=== PATIENT | female | born 1970 | race Caucasian/White ===

== ENCOUNTER 2017-01-01 08:19 | Emergency (ER) | payer OTHER ==
--- NOTE | 2017-01-01 10:11 | UC ---
Hand/Wrist HPI - HPI Summary HPI Summary: Patient presents with a past medical history of left wrist injury year ago, she sprained her wrist at work. She states yesterday she started to develop pain in the left wrist, that is worse with movement, and improves some at rest. She describes the pain with movement as sharp, and dull pain at rest. She also states that she has been experiencing some - History Of Current Complaint Chief Complaint: UCUpperExtremity Stated Complaint: HAND PAIN NUMBNESS Time Seen by Provider: 01/01/17 09:06 Hx Obtained From: Patient Hx Last Menstrual Period: 10/20 Onset/Duration: Gradual Onset, Lasting Days Severity Initially: Moderate Severity Currently: Moderate Character Of Pain: Dull Aggravating Factor(s): Movement, Lifting, Flexion, Extension Alleviating: Rest Associated Signs And Symptoms: Positive: Numbness/Tingling - Allergies/Home Medications Allergies/Adverse Reactions: Allergies Allergy/AdvReac Type Severity Reaction Status Date / Time Morphine Allergy Severe VOMITING, Verified 07/01/15 15:42 HALLUCINATIONS Sulfa Antibiotics Allergy Severe Anaphylatic Verified 07/01/15 15:42 Shock Home Medications: Home Medications Dextromethorphan-Phenylephrine [Day Time Multi-Symptom Co] 1 cap PO 01/01/17 [ History] PMH/Surg Hx/FS Hx/Imm Hx Previously Healthy: Yes - Surgical History Surgical History: Yes Surgery Procedure, Year, and Place: BREAST REDUCTION - Family History Known Family History: Positive: None - Social History Occupation: Employed Full-time Lives: Alone Alcohol Use: None Substance Use Type: None Smoking Status (MU): Former Smoker Type: Cigarettes Amount Used/How Often: 8 CIG/DAY Length of Time of Smoking/Using Tobacco: 12 YEARS Have You Smoked in the Last Year: Yes When Did the Patient Quit Smoking/Using Tobacco: 05/06/13 - Immunization History Most Recent Tetanus Shot: does not recall Review of Systems Constitutional: Negative Skin: Negative Eyes: Negative ENT: Negative Respiratory: Negative Cardiovascular: Negative Gastrointestinal: Negative Genitourinary: Negative Motor: Other - left wrist pain All Other Systems Reviewed And Are Negative: Yes Physical Exam Triage Information Reviewed: Yes Appearance: Well-Appearing Vital Signs: Initial Vital Signs Temp 98.0 F 01/01/17 08:27 Pulse 81 01/01/17 08:27 Resp 18 01/01/17 08:27 BP 137/79 01/01/17 08:27 Pulse Ox 97 01/01/17 08:27 Vital Signs Reviewed: Yes Eye Exam: Normal ENT Exam: Normal Neck exam: Normal Respiratory Exam: Normal Cardiovascular Exam: Normal Abdominal Exam: Normal Musculoskeletal: Positive: Strength Limited @, ROM Limited @ - tenderness to palpation of left volar aspect of wrist, no erythma, induration noted. Hand/Wrist Course/Dx - Course Course Of Treatment: Patient presents with a past medical history of left wrist sprain, she presents today with nontruamtatic pain with movement consistent with tendonitis or overuse syndrome. she was placed in a cock up splint and given nsaids for pain control. I have taken her out of work for 2 days, and if her symtpoms perisit beyond that she should follow up with pcp. at the time of discharge she was neuro-vascually intact and in agreement with the discharge plan. - Differential Dx/Diagnosis Differential Diagnosis/HQI/PQRI: Tendonitis Provider Diagnoses: tedonitis Discharge - Discharge Plan Condition: Stable Disposition: HOME Prescriptions: Naproxen [Naprosyn 500 mg] 500 mg PO BID PRN #14 tab PRN Reason: tendonitis Patient Education Materials: Tendinitis (ED) Forms: *Work Release Referrals: Nadia Marte MD [Primary Care Provider] -
[2017-01-01 10:51] VITALS: BP 158/91
== END 2017-01-01 10:38 | disposition home or self-care (01) ==
LOC: UCEAST 08:19
DX: M65.842 Other synovitis and tenosynovitis, left hand (principal); Z88.5 Allergy status to narcotic agent; Z88.2 Allergy status to sulfonamides; Z87.891 Personal history of nicotine dependence
CPT/HCPCS: 99213; G0463

== ENCOUNTER 2018-01-21 16:23 | Emergency (ER) | payer SELFPAY ==
[2018-01-21 16:34] VITALS: BP 153/84
--- NOTE | 2018-01-21 17:12 | UC ---
Throat Pain/Nasal Sarwat HPI - HPI Summary HPI Summary: sinus pain and pressure x 3 weeks + dry ,cough, nasal congestion , pnd no fever, no chills , - History of Current Complaint Chief Complaint: UCRespiratory Stated Complaint: COUGH Time Seen by Provider: 01/21/18 17:04 Hx Obtained From: Patient Hx Last Menstrual Period: 11/20 ?: No Onset/Duration: Gradual Onset, Lasting Weeks - 3, Still Present Severity: Moderate Pain Intensity: 7 Cough: Nonproductive Associated Signs & Symptoms: Positive: Sinus Discomfort, Nasal Discharge. Negative: Wheezing, Fever, Vomiting, Rash - Allergies/Home Medications Allergies/Adverse Reactions: Allergies Allergy/AdvReac Type Severity Reaction Status Date / Time Sulfa (Sulfonamide Allergy Severe Anaphylatic Verified 01/21/18 16:35 Antibiotics) Shock morphine Allergy Intermediate vomitting Verified 01/21/18 16:35 haulicinations Home Medications: Home Medications Metformin HCl 500 mg PO TID 01/21/18 [History Confirmed 01/21/18] buPROPion TAB* [Wellbutrin TAB*] 100 mg PO BID 01/21/18 [History Confirmed 01/21] PMH/Surg Hx/FS Hx/Imm Hx Endocrine History: Diabetes Psychological History: Anxiety, Depression - Surgical History Surgical History: Yes Surgery Procedure, Year, and Place: BREAST REDUCTION - Family History Known Family History: Positive: None, Diabetes - Social History Alcohol Use: None Substance Use Type: None Smoking Status (MU): Former Smoker Type: Cigarettes Amount Used/How Often: 8 CIG/DAY Length of Time of Smoking/Using Tobacco: 12 YEARS Have You Smoked in the Last Year: Yes When Did the Patient Quit Smoking/Using Tobacco: 05/06/13 - Immunization History Most Recent Tetanus Shot: does not recall Review of Systems Constitutional: Chills, Fatigue Skin: Negative Eyes: Negative ENT: Sore Throat, Nasal Discharge, Sinus Congestion, Sinus Pain/Tenderness Respiratory: Cough Cardiovascular: Negative Is Patient Immunocompromised?: No All Other Systems Reviewed And Are Negative: Yes Physical Exam Triage Information Reviewed: Yes Appearance: Well-Appearing, No Pain Distress, Well-Nourished Vital Signs: Initial Vital Signs Temp 97.9 F 01/21/18 16:30 Pulse 87 01/21/18 16:30 Resp 18 01/21/18 16:30 BP 153/84 01/21/18 16:30 Pulse Ox 96 01/21/18 16:30 Vital Signs Reviewed: Yes Eyes: Positive: Conjunctiva Clear ENT: Positive: Normal ENT inspection, Hearing grossly normal, Pharyngeal erythema, Nasal congestion, Nasal drainage, TMs normal, Sinus tenderness Neck: Positive: Supple, Nontender, No Lymphadenopathy Respiratory: Positive: Chest non-tender, Lungs clear, Normal breath sounds Cardiovascular: Positive: RRR, No Murmur, Pulses Normal Skin Exam: Normal Throat Pain/Nasal Course/Dx - Differential Dx/Diagnosis Provider Diagnoses: sinusitis Discharge - Sign-Out/Discharge Documenting (check all that apply): Patient Departure All imaging exams completed and their final reports reviewed: No Studies - Discharge Plan Condition: Stable Disposition: HOME Prescriptions: Amoxicillin/Clavulanate TAB* [Augmentin TAB 875*] 875 mg PO BID #20 tab Benzonatate CAP* [Tessalon 100 MG CAP*] 100 mg PO TID PRN #21 cap PRN Reason: Cough Patient Education Materials: Sinusitis (ED) Referrals: Daniela Carpenter MD [Primary Care Provider] - If Needed - Billing Disposition and Condition Condition: STABLE Disposition: Home
== END 2018-01-21 17:15 | disposition home or self-care (01) ==
LOC: UCEAST 16:23
DX: J32.9 Chronic sinusitis, unspecified (principal); E11.9 Type 2 diabetes mellitus without complications; Z79.84 Long term (current) use of oral hypoglycemic drugs; F41.9 Anxiety disorder, unspecified; F32.9 Major depressive disorder, single episode, unspecified; Z88.5 Allergy status to narcotic agent; Z88.2 Allergy status to sulfonamides; Z87.891 Personal history of nicotine dependence
CPT/HCPCS: 99212; G0463

== ENCOUNTER 2018-07-08 14:43 | Emergency (ER) | payer OTHER ==
[2018-07-08 15:08] VITALS: BP 135/84
--- NOTE | 2018-07-08 15:19 | UC ---
Back Pain HPI - HPI Summary HPI Summary: 48 yo female presents with back pain. She tells me that on 07/05/18 she was walking outside and slipped on the ice - did not fall, but did twist her back. Since that time she has had pain in her left lower back and into her buttocks. She has taken ibuprofen and tried resting with little relief. She denies numbness, tingling, saddle anesthesia, or loss of bowel/bladder control. - History of Current Complaint Chief Complaint: UCBackPain Stated Complaint: BACK INJURY Time Seen by Provider: 07/08/18 15:19 Hx Obtained From: Patient Hx Last Menstrual Period: May 09 Onset/Duration: Sudden Onset Timing: Constant Severity Initially: Severe Severity Currently: Severe Pain Intensity: 9 Pain Scale Used: 0-10 Numeric - Allergies/Home Medications Allergies/Adverse Reactions: Allergies Allergy/AdvReac Type Severity Reaction Status Date / Time Sulfa (Sulfonamide Allergy Severe Anaphylatic Verified 07/08/18 15:08 Antibiotics) Shock morphine Allergy Intermediate vomitting Verified 07/08/18 15:08 haulicinations Home Medications: Home Medications Ibuprofen TAB* [Advil TAB*] 600 mg PO Q6H PRN 07/08/18 [History Confirmed ] Sitagliptin Phosphate [Januvia] 25 mg PO DAILY 07/08/18 [History Confirmed 07/08] glipiZIDE [Glipizide ER] 5 mg PO DAILY 07/08/18 [History Confirmed 07/08/18] PMH/Surg Hx/FS Hx/Imm Hx Endocrine History: Diabetes Psychological History: Anxiety, Depression - Surgical History Surgical History: Yes Surgery Procedure, Year, and Place: BREAST REDUCTION - Family History Known Family History: Positive: Diabetes - Social History Occupation: Employed Full-time Lives: With Family Alcohol Use: Rare Substance Use Type: None Smoking Status (MU): Light Every Day Tobacco Smoker Type: Cigarettes Amount Used/How Often: 8 CIG/DAY Length of Time of Smoking/Using Tobacco: 12 YEARS Have You Smoked in the Last Year: Yes When Did the Patient Quit Smoking/Using Tobacco: 05/06/13 - Immunization History Most Recent Tetanus Shot: does not recall Review of Systems All Other Systems Reviewed And Are Negative: Yes Constitutional: Positive: Negative Skin: Positive: Negative Respiratory: Positive: Negative Cardiovascular: Positive: Negative Gastrointestinal: Positive: Negative Genitourinary: Positive: Negative Neurovascular: Positive: Negative Musculoskeletal: Positive: Other: - Low back pain Neurological: Positive: Negative Psychological: Positive: Negative Physical Exam - Summary Physical Exam Summary: GENERAL: NAD. WDWN. No pain distress. SKIN: No rashes, sores, lesions, or open wounds. NECK: Supple. FROM. Nontender. No lymphadenopathy. CHEST: CTAB. No r/r/w. No accessory muscle use. Breathing comfortably and in no distress. CV: RRR. Without m/r/g. Pulses intact. Cap refill <2seconds MSK: TTP over lumbar paraspinal muscles, left > right. Left SI TTP. Pain with flexion and extension of spine. Positive SLR on left for low back pain without radiation. Strength 5/5 B/L LEs including dorsiflexion and plantar flexion. FROM B/L LEs. No edema. NEURO: Alert. Sensations intact B/L LEs L3-S1. Reflexes intact PSYCH: Age appropriate behavior. Triage Information Reviewed: Yes Vital Signs: Initial Vital Signs Temp 97.2 F 07/08/18 15:05 Pulse 84 07/08/18 15:05 Resp 16 07/08/18 15:05 BP 135/84 07/08/18 15:05 Pulse Ox 97 07/08/18 15:05 Laboratory Tests 07/08/18 15:19 POC Ur Test Negative Vital Signs Reviewed: Yes Back Pain Course/Dx - Course Course Of Treatment: XR: IMPRESSION: #. Negative for fracture. #. Mild degenerative spondylosis and moderate facet joint osteoarthritis. She was given toradol IM in the clinic. Suspect muscle strain/spasm. Advised to continue rest and apply heat. Will rx for muscle relaxer and write her a note off work tomorrow. F/u with PCP if symptoms do not improve. - Differential Dx/Diagnosis Provider Diagnosis: Low back strain Discharge - Sign-Out/Discharge Documenting (check all that apply): Patient Departure All imaging exams completed and their final reports reviewed: Yes - Discharge Plan Condition: Stable Disposition: HOME Prescriptions: Cyclobenzaprine TAB* [Flexeril 10 MG TAB*] 10 mg PO TID PRN #21 tab PRN Reason: Pain Naproxen [Naproxen 500 mg tab] 500 mg PO BID PRN #30 tablet PRN Reason: Pain Patient Education Materials: Low Back Strain (ED), Lower Back Exercises (ED) Forms: *Work Release Referrals: Daniela Carpenter MD [Primary Care Provider] - 1 Week Additional Instructions: If you develop a fever, shortness of breath, chest pain, new or worsening symptoms - please call your PCP or go to the ED. Your blood pressure was high at todays visit. Please see your primary provider within 4 weeks for recheck and re-evaluation. 1) Rest and apply heat to your back to reduce pain 2) Do not take ibuprofen with naproxen as these may interact 3) Please schedule a follow up with your primary doctor in 1 week for a recheck of your pain if not feeling better - Billing Disposition and Condition Condition: STABLE Disposition: Home
[2018-07-08] MEDS ORDERED: Ketorolac INJ* 60 MG/2 ML VIAL IM ONE (15:58)
== END 2018-07-08 16:52 | disposition home or self-care (01) ==
LOC: UCEAST 14:43
DX: S39.012A Strain of muscle, fascia and tendon of lower back, initial encounter (principal); W18.49XA Other slipping, tripping and stumbling without falling, initial encounter; Y93.29 Activity, other involving ice and snow; Y92.9 Unspecified place or not applicable; Z87.891 Personal history of nicotine dependence; Z88.2 Allergy status to sulfonamides; E11.9 Type 2 diabetes mellitus without complications; Z88.5 Allergy status to narcotic agent; Z79.84 Long term (current) use of oral hypoglycemic drugs
CPT/HCPCS: 72110; 84702; 96372; 99212; G0463; J1885